=== PATIENT | male | born 1940 | race Caucasian/White ===

== ENCOUNTER 2017-10-25 09:21 | Inpatient (IN) | payer MEDICARE ==
[~2017-10-25] VITALS: Ht 170.2 cm; Wt 81.7 kg
[~2017-10-25 09:21] MED LIST: ASA; FISH OIL; LOSARTAN-HCTZ1 EACH PO; LOSHYD PO; MVI; Prilosec Otc20 MG PO; Zofran Odt4 MG SL
[2017-10-25] MEDS ORDERED: ACID REDUCER20 MG PO (10:18)
[2017-10-25] MEDS ORDERED: DOCU100 PO (10:18)
[2017-10-25] MEDS ORDERED: OXYC10TA19 PO (10:19)
[2017-10-25 10:20] LABS: BASOPHILS ABSOLUTE AUTO 0.01 K/mm3 (0.00-0.23); BASOPHILS PERCENT AUTO 0 % (0-2); EOSINOPHILS ABSOLUTE AUTO 0.34 K/mm3 (0.00-0.68); EOSINOPHILS PERCENT AUTO 4 % (0-6); Hematocrit 27.9 % (37.0-53.0); Hemoglobin 9.4 g/dL (13.5-17.5); IMMATURE GRAN ABSOLUTE AUTO 0.07 K/mm3 (0.00-0.10); IMMATURE GRAN PERCENT AUTO 1 % (0-1); LYMPHOCYTES ABSOLUTE AUTO 0.78 K/mm3 (0.84-5.20); LYMPHOCYTES PERCENT AUTO 9 % (21-46); MONOCYTES ABSOLUTE AUTO 1.08 K/mm3 (0.16-1.47); MONOCYTES PERCENT AUTO 12 % (4-13); Mean Corpuscular HGB 29.6 pg (26.0-34.0); Mean Corpuscular HGB Conc 33.7 g/dL (31.5-36.5); Mean Corpuscular Volume 88 fL (80-100); NEUTROPHILS ABSOLUTE AUTO 6.47 K/mm3 (1.96-9.15); NEUTROPHILS PERCENT AUTO 74 % (41-73); NRBC ABSOLUTE 0.04 K/mm3 (0.00-0.02); NRBC Auto 0.5 /100 WBC (0.0-0.2); RDW Coefficient Variation 27.7 % (11.7-14.2); RDW Standard Deviation 81.6 fL (35.1-46.3); Red Blood Cell Count 3.18 M/mm3 (4.30-5.90); White Blood Cell Count 8.75 K/mm3 (4.00-11.30)
[2017-10-25] MEDS ORDERED: TAMS.4ER PO (10:20)
[2017-10-25 10:31] LABS: Albumin, Blood 1.3 g/dL (3.4-5.0); Albumin/Globulin Ratio 0.3 (0.8-1.8); Bilirubin, Total 8.3 mg/dL (0.1-1.0); Bun/Creatinine Ratio 44.2 (12.0-20.0); Calcium, Blood 8.5 mg/dL (8.5-10.1); Creatinine, Blood 2.33 mg/dL (0.60-1.20); Potassium, Blood 5.4 mmol/L (3.5-5.5); Total Protein, Blood 6.3 g/dL (6.4-8.2)
[2017-10-25 10:33] LABS: Platelet Count 48 K/mm3 (150-400)
== END 2017-10-27 12:45 | DRG 686 ==
LOC: ER 09:21 → MEDS 12:17
PROVIDERS: Internal Medicine
DX: C64.9 Malignant neoplasm of unspecified kidney, except renal pelvis (principal); R53.2 Functional quadriplegia; N17.9 Acute kidney failure, unspecified; E86.0 Dehydration; C79.9 Secondary malignant neoplasm of unspecified site; G89.3 Neoplasm related pain (acute) (chronic); Z51.5 Encounter for palliative care; I10 Essential (primary) hypertension; R62.7 Adult failure to thrive; Z90.49 Acquired absence of other specified parts of digestive tract
CPT/HCPCS: 80053; 81000; 85025; 93005; 93010; 96361; 96374; 99285; J2060; J2405; J3010; J7030